=== PATIENT | female | born 1985 | race Hispanic/Latino ===

== ENCOUNTER 2017-01-21 08:56 | Emergency (ER) | payer OTHER, SELFPAY ==
--- NOTE | 2017-01-21 09:54 | RAD ---
2 VIEWS OF CHEST: Date: 01/21/17 COMPARISON: None. HISTORY: Chest pain that began this morning. FINDINGS: Two views of the chest show normal sized cardiomediastinal silhouette. There is no evidence of conso lidation, mass, or pleural effusion. The bones are unremarkable. IMPRESSION: No evidence of acute cardiopulmonary disease. POS: [facility]
[2017-01-21 10:55] LABS: #Lymphocytes 1.8 thou/uL (1.20-3.40); #Monocytes 0.3 thou/uL (0.11-0.59); #Neutrophils 4.6 thou/uL (1.40-6.50); %Basophils 0.4 % (0.0-1.0); %Eosinophils 0.2 % (0.0-10.0); %Lymphocytes 26.9 % (21.0-51.0); Hematocrit 40.4 % (36.0-47.0); Red Blood Cell (RBC) Count 4.33 mill/uL (4.20-5.40); White Blood Cell (WBC) Count 6.8 thou/uL (4.8-10.8)
[2017-01-21] MEDS ORDERED: Ketorolac Tromethamine 30 MG/ML VIAL ONE (10:59)
[2017-01-21 11:00] LABS: PTT 28.5 SEC (22.9-36.1); Prothrombin Time 12.9 SEC (12.0-14.7)
[2017-01-21 11:14] LABS: ALT (SGPT) 36 U/L (8-55); AST (SGOT) 21 U/L (5-34); Alkaline Phosphatase 86 U/L (40-150); Anion Gap 12 mmol/L (10-20); BUN (Urea Nitrogen) 10 mg/dL (7.0-18.7); Bilirubin, Total 0.5 mg/dL (0.2-1.2); CK (CPK) 64 U/L (29-168); Calc. Creatinine Clearance 0 mL/min (70-130); Calcium 8.7 mg/dL (7.8-10.44); Carbon Dioxide 21 mmol/L (22-29); Chloride 107 mmol/L (98-107); Estimated GFR-MDRD 90; Globulin 3.6 g/dL (2.4-3.5); Lipase 42 U/L (8-78); Protein, Total 7.4 g/dL (6.0-8.3)
[2017-01-21 11:16] LABS: Troponin I Less than 0.010 ng/mL (< 0.028)
--- NOTE | 2017-01-21 11:22 | ULT ---
RIGHT UPPER QUADRANT ABDOMINAL ULTRASOUND: COMPARISON: None. HISTORY: Right-sided chest and abdominal pain that woke her from sleep. TECHNIQUE: Multiplanar, hicks scale, and color Doppler images were obtained in a right upper quadrant abdominal ultrasound. FINDINGS: The liver is normal in echogenicity without focal lesions or intrahepatic ductal dilatation. There are shadowing stones within the gallbladder. There may be mild gallbladder thickening without peric holecystic fluid. The common bile duct is normal measuring 4 mm. The visualized portions of the pancreas are unremarkable. The right kidney is normal in echogenicit y without hydronephrosis or calculus and measures 10.3 cm in length. IMPRESSION: Cholelithiasis. POS: [facility]
[2017-01-21 11:33] LABS: Bilirubin Negative (Negative); Blood, Urine Negative (Negative); Glucose, Urine (Dipstick) Negative (Negative); Ketone, Urine Negative (Negative); Nitrite Negative (Negative); Protein, Urine (Dipstick) Negative (Neg-Trace); Urobilinogen 0.2 mg/dL (0.2-1.0)
[2017-01-21 11:50] LABS: Bacteria/HPF Rare-Few HPF (None Seen); Hyaline Casts/LPF 0-3 HYALINE CAST LPF (0-3 Hyaline); Squamous Epithelial 0-3 HPF (0-3)
== END 2017-01-21 12:10 | disposition home or self-care (01) ==
LOC: ERS 08:56
DX: K80.20 Calculus of gallbladder without cholecystitis without obstruction (principal); R07.81 Pleurodynia
CPT/HCPCS: 36415; 71020; 76705; 80053; 81003; 81015; 82553; 83690; 84484; 84703; 85025; 85379; 85610; 85730; 87086; 93005; 96374; J1885